=== PATIENT | male | born 1990 | race Caucasian/White ===

== ENCOUNTER 2017-09-27 20:58 | Emergency (ER) | payer MEDICAID, OTHER | END 2017-09-27 21:55 | disposition home or self-care (01) | LOC: E/R 21:55 → FTE 20:58 | DX: R50.9 Fever, unspecified (principal); R05 Cough; R09.81 Nasal congestion; J02.9 Acute pharyngitis, unspecified | CPT/HCPCS: 99284; Z7502 ==